=== PATIENT | female | born 1950 | race Caucasian/White ===

== ENCOUNTER → 2017-09-05 | Outpatient (CLI) | payer MEDICARE, BC ==
[~2017-09-05] MED LIST: BACL10TA PO; IMIT100T PO; MONT10TA4 PO; OMEP20CA2 PO; PULM90IN INH; TRAM50TA PO; WALKER WHEELS/F1 MIS
[2017-09-05 10:53] LABS: HEMATOCRIT 41.1 % (35.0-46.0); HEMOGLOBIN 14.4 GM/DL (11.6-15.3); MEAN CELL VOLUME 89.4 FL (80.0-100.0); MEAN CORPUSCULAR HEMOGLOBIN 31.3 PG (27.0-34.0); MEAN PLATELET VOLUME 6.5 FL (7.0-11.0); PLATELET COUNT 372 TH/MM3 (150-450); RED CELL DISTRIBUTION WIDTH 13.2 % (11.6-17.2); WHITE BLOOD COUNT 6.6 TH/MM3 (4.0-11.0)
--- NOTE | 2017-09-05 11:14 | RADRPT ---
EXAM DATE/TIME: 09/05/2017 10:03 [facility] COMPARISON: No previous studies available for comparison. INDICATIONS : Evaluate for pneumonia, pneumothorax, or communicable disease. Pre-op for lumbar fusion on 09/10/2017 . MEDICAL HISTORY : None. SURGICAL HISTORY : None. ENCOUNTER: Initial ACUITY: 1 day PAIN SCORE: 0/10 LOCATION: Bilateral chest FINDINGS: PA and lateral views of the chest demonstrate the lungs to be symmetrically aerated without evidence of mass, infiltrate or effusion. The cardiomediastinal contours are unremarkable. Osseous structure s are intact. CONCLUSION: No acute disease. Haresh Llanos MD on September 05, 2017 at 11:12 Board Certified Radiologist. This report was verified electronically.
[2017-09-05 11:20] LABS: BICARBONATE 25.8 MEQ/L (21.0-32.0); CALCIUM 9.5 MG/DL (8.5-10.1); CREATININE 0.8 MG/DL (0.50-1.00)
--- NOTE | 2017-09-06 18:34 | EKG ---
Date Performed: 09/05/2017 Time Performed: 09:40:14 PTAGE: 67 years EKG: Sinus rhythm . Possible left atrial abnormality Low QRS voltages in precordial leads Borderline ECG NO PREVIOUS TRACING DOCTOR: Chandrakant Romero Interpretating Date/Time 09/06/2017 18:32:50
== END ==
LOC: CPRE 09:08
PROVIDERS: ATTEND Neurological Surgery
DX: Z01.812 Encounter for preprocedural laboratory examination (principal); Z01.810 Encounter for preprocedural cardiovascular examination; Z01.811 Encounter for preprocedural respiratory examination; M43.16 Spondylolisthesis, lumbar region; M48.062 Spinal stenosis, lumbar region with neurogenic claudication; R94.31 Abnormal electrocardiogram [ECG] [EKG]
CPT/HCPCS: 36415; 71046; 80048; 85027; 85610; 85730; 87640; 87641; 93005

== ENCOUNTER 2017-09-10 05:58 | Inpatient (IN) | payer MEDICARE, BC ==
[~2017-09-10] VITALS: Ht 167.6 cm; Wt 87.6 kg
[~2017-09-10 05:58] MED LIST changes: -IMIT100T PO; -PULM90IN INH; -WALKER WHEELS/F1 MIS
[2017-09-10] MEDS ORDERED: POVIDONE IODINE 5% (ANTISEPSIS KIT) 4 APPLICATIONS EACH NARE PRN (06:30)
[2017-09-10] MEDS ORDERED: METOPROLOL TARTRATE 25 MG TAB PO PRN (06:30)
[2017-09-10] MEDS ORDERED: LACTATED RINGER'S 1000 ML INJ 1,000 ML IV SCH (06:30)
[2017-09-10] MEDS ORDERED: CHLORHEXIDINE GLUCONATE 2 % 1 PACK (2 CLOTHS) TOPICAL PRN (06:30)
[2017-09-10] MEDS ORDERED: SODIUM CHLORID 0.9% 500 ML IV PRN (06:30)
[2017-09-10] MEDS ORDERED: LACTATED RINGER'S 1000 ML IV PRN (06:30)
[2017-09-10] MEDS ORDERED: IMIT100T PO (06:37)
[2017-09-10] MEDS ORDERED: PULM90IN INH (06:37)
[2017-09-10] MEDS ORDERED: HYDROmorphone HCL PF 2 MG/ML VIAL ONE (07:02)
[2017-09-10] MEDS ORDERED: ACETAMINOPHEN 1000 MG/100 ML 100 ML IV ONE (07:02)
[2017-09-10] MEDS ORDERED: PROPOFOL 500 MG/50 ML INJ 150 ML ONE (07:03)
[2017-09-10] MEDS ORDERED: THROMBIN (TOPICAL) 5,000 UNIT VIAL ONE (07:37)
[2017-09-10] MEDS ORDERED: HEPARIN SODIUM - SQ 10,000 UNITS/ML VIAL ONE (07:37)
[2017-09-10] MEDS ORDERED: GENTAMICIN SULFATE 80 MG/2 ML VIAL ONE (07:38)
[2017-09-10] MEDS ORDERED: GELFOAM SIZE 100 ONE (07:38)
[2017-09-10] MEDS ORDERED: LIDOCAINE 1%/EPINEPHrine 1:100,000 SOLN 20 ML VIAL ONE ×2 (07:38→07:45)
[2017-09-10] MEDS ORDERED: BUPIVACAINE LIPOSOME PF 1.3% 20 ML VIAL ONE (07:43)
[2017-09-10] MEDS ORDERED: BUPIVACAINE HCL PF 0.25% 30 ML VIAL ONE (07:45)
[2017-09-10] MEDS ORDERED: APREPITANT 40 MG CAP ONE (08:17)
[2017-09-10] MEDS: ceFAZolin 1,000 MG/NS 100 ML IV SCH ×6 (08:19→16:15)
[2017-09-10] MEDS ORDERED: PHENYLEPH/NS 1000 MCG/10 ML SYR IV ONE (12:00)
[2017-09-10] MEDS ORDERED: LACTATED RINGER'S 1000 ML INJ 3,000 ML IV ONE (12:00)
[2017-09-10] MEDS ORDERED: PHENYLEPHRINE HCL 10 MG/ML VIAL IV ONE (12:00)
[2017-09-10] MEDS ORDERED: DEXAMETHASONE SOD PHOS 4 MG/ML VIAL IV ONE (12:00)
[2017-09-10] MEDS ORDERED: ROCURONIUM INJ 50 MG/5 ML SYRINGE IV PUSH ONE (12:00)
[2017-09-10] MEDS ORDERED: SODIUM CHLORID 0.9% 500 ML INJ 500 ML IV ONE (12:00)
[2017-09-10] MEDS ORDERED: ceFAZolin INJ 1,000 MG VIAL IV ONE (12:00)
[2017-09-10] MEDS ORDERED: ONDANSETRON HCL 4 MG/2 ML VIAL IV ONE (12:00)
[2017-09-10] MEDS ORDERED: PROPOFOL 200 MG/20 ML AMP IV ONE (12:00)
[2017-09-10] MEDS ORDERED: LIDOCAINE HCL 1% PF 5 ML SYRINGE OTHER ONE (12:00)
[2017-09-10] MEDS ORDERED: ceFAZolin 2 GM PREMIX 50 ML ONE (12:15)
[2017-09-10] MEDS ORDERED: PROPOFOL 500 MG/50 ML INJ 100 ML ONE (13:03)
[2017-09-10 13:32] LABS: HEMATOCRIT 31.6 % (35.0-46.0)
[2017-09-10] MEDS ORDERED: MIDAZOLAM HCL 2 MG/2 ML VIAL ONE (15:47)
[2017-09-10] MEDS ORDERED: BUPIVACAINE LIPOSOME PF 1.3% 20 ML VIAL INFIL ONE (16:03)
[2017-09-10] MEDS ORDERED: MORPHINE SULFATE 30 MG/30 ML PCA IV SCH (18:15)
[2017-09-10] MEDS ORDERED: NALOXONE HCL 0.4 MG/ML AMP IV PUSH PRN ×2 (18:15)
[2017-09-10] MEDS ORDERED: ACETAMINOPHEN/HYDROcodone 325 MG/5 MG TAB PO PRN (18:15)
--- NOTE | 2017-09-10 18:25 | PD.OP ---
Operative Report Date of Surgery: Sep 10, 2017 Preoperative Diagnosis: (1) Lumbar stenosis with neurogenic claudication (2) Spondylolisthesis of lumbar region Grade I L3-4 and L4-5 spondylolisthesis Lumbar stenosis Neurogenic claudication Postoperative Diagnosis: (1) Lumbar stenosis with neurogenic claudication (2) Spondylolisthesis of lumbar region Grade I L3-4 and L4-5 spondylolisthesis Lumbar stenosis Neurogenic claudication Procedure: 1. L3 4 and L4 5 bilateral decompressive semi-laminectomy, medial facetectomy, foraminotomy-microtechnique 2. L3 4 and L4 5 discectomy, interbody fusion, PEEK cage, lamina autograft bone and demineralized bone matrix 3. Bilateral L3-L5 posterior segmental instrumentation with pedicle screw fixation 4. Bilateral L3-5 posterior lateral fusion with laminar autograft and demineralized bone matrix 5. 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 Left L3 4 foraminal synovial cyst Procedure in detail: The patient was brought to the operating room and general endotracheal anesthesia induced without difficulty Lines were established per Anesthesia Sequential compression devices were in place The patient was positioned prone on the concentric Danny table with the side bolsters and all extremities appropriately padded Leads for intraoperative neuro monitoring were placed prior to positioning and a baseline study obtained Appropriate timeout procedure was performed with all personnel present and in agreement The lumbar region was shaved with clippers and sterilely prepped and draped 1% Xylocaine with epinephrine was used for local infiltration over the incision site which was made at the midline L3 through L5 level. The incision was carried sharply down to the lumbodorsal fascia which was sharply incised Jung elevator was used for subperiosteal elevation of paraspinous musculature and fascia away from the lamina and spinous processes L3, L4, L5 on the left side. The deep self-retaining retractor was placed with tension released at 10 minute intervals and the retractor removed frequently to avoid excessive muscle retraction. The appropriate levels were verified with intraoperative C-arm The microscope was moved into place and used for the decompression and cage placement portion of the procedure . The entry point for the pedicle screws were determined by anatomic and radiographic landmarks. The pedicle screw site was prepared with the awl followed by the pedicle finder and the tap. The ball tip probe was used to probe the pedicle screw site to ensure that there was no breakout through the pedicle. The appropriate size pedicle screw was placed at each pedicle screw site The screw placement was verified with intraoperative C-arm and intraoperative neural monitoring and felt to be satisfactory. The TPS drill with a 5 mm bone bur followed by the Kerrison rongeur was used to remove the inferior two thirds of the lamina at the cephalad level of the decompression and the superior third of the lamina at the caudal level of the decompression. The decompression was accomplished at the L3 4 and L4 5 levels starting on the left side and working across the midline to the right. On the left side the majority of the facet was removed to allow for the cage placement. Hypertrophied ligamentum flavum was elevated away from the thecal sac and exiting nerve roots with the thin ligament dissector and resected with a 15 blade knife and Kerrison rongeur. The thecal sac and exiting nerve root were freed up from surrounding adhesions with the microdissectors and gently retracted medially revealing the underlying disc and annulus. There was moderate subannular disc herniation. 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 This appeared to join the exiting left L4 nerve root. This aberrant nerve was directly stimulated with intraoperative stimulation and response was obtained from the left tibialis anterior at a low threshold. This nerve was carefully preserved during the entirety of the procedure. In order to achieve adequate room for a cage placement at the L4 5 level, the exiting left L4 and aberrant nerve were carefully dissected as much as possible away from surrounding structures and adhesions and careful retraction of the nerve roots away from the thecal sac yielded just adequate room for a cage to be placed. The annulus was incised with the 11 blade knife and discectomy performed with pituitary biopsy forceps and straight and angled curettes at each level. The endplate scrapers were used to decorticate the endplates and any remaining debris was removed with the antibiotic irrigation and suction and pituitary biopsy forceps The appropriate size PEEK cage was packed with retained lamina cancellus autograft and a small amount of demineralized bone matrix, with a lordotic cage placed at the L3 4 level. Due to the limited space available at the L4 5 level, a expandable cage without graft was placed at L4 5 with graft placed into the interspace and firmly packed prior to cage placement. The placement was checked under the microscope and with intraoperative C-arm and felt to be satisfactory. The thecal sac and nerve roots were probed with the long blunt nerve hook and felt to be well decompressed Next using a subcutaneous trans-fascial approach, the [email or web address] needles were advanced into the right L3, L4, and L5 pedicle using AP and lateral C-arm imaging. The guidewires were placed through each needle and the needle cannula removed. The dilators were used to dilate down to the entry point of the pedicle and the cannulated 5.5 mm tap was utilized to prepare the pedicle followed by placement of the proper length cannulated MIS screw on the MIS extension. The MIS screws on the right were again checked with intraoperative neuro monitoring felt to be satisfactory. The rods were placed across the pedicle screws on each side. The L5 screw was locked in place first and the reducers on the right and left side were used to simultaneously reduce the L4 5 and next the L3 4 anterolisthesis. The locking caps were secured with the torque wrench and anti-torque device under bilateral compression to achieve better lordosis. The entire construct was checked with intraoperative C-arm and felt to be satisfactory The region was well irrigated with antibiotic irrigation The posterior lateral structures at the bilateral L3-L5 levels were decorticated with the TPS drill The shavings were left in place, to which was added the remaining autograft and allograft bone which was firmly packed in place for the posterior lateral fusion. The 7 mm flat fluted drain was left in place at the operative side and brought out through a incision at the upper lumbar region and secured to the skin with nylon suture and attached to sterile suction bleeding was carefully controlled with the bipolar forceps The closure was performed with 0 Vicryl interrupted for the deep and superficial fascia, with 3-0 Vicryl for the subcutaneous closure and 4-0 Vicryl running subcuticular closure. Dressings sterile Mastisol, Steri-Strips and Primapore was placed The patient was turned into supine position and taken to recovery room in stable condition All counts were correct at the end of the case Estimated blood loss was 200 cc No specimen was sent to pathology Neuro monitoring was stable during the procedure Darius Lee MD Sep 10, 2017 18:25
[2017-09-10] MEDS ORDERED: DO NOT ADM ANY ANTICOAGULANT DRUGS PRN (18:43)
[2017-09-10] MEDS ORDERED: MORPHINE SULFATE 30 MG/30 ML PCA ONE (18:56)
[2017-09-10] MEDS: D5-1/2 NS + KCL 20 MEQ INJ 1,000 ML IV SCH (19:00)
[2017-09-10 19:04] LABS: AUTOMATED NEUTROPHIL # 13.2 TH/MM3 (1.8-7.7); BASOPHIL % 0.1 % (0.0-2.0); HEMATOCRIT 36.3 % (35.0-46.0); HEMOGLOBIN 12.1 GM/DL (11.6-15.3); LYMPH % 9.2 % (9.0-44.0); LYMPHOCYTE # 1.4 TH/MM3 (1.0-4.8); MEAN CELL VOLUME 89.3 FL (80.0-100.0); MEAN CORPUSCULAR HEMOGLOBIN 29.8 PG (27.0-34.0); MEAN CORPUSCULAR HGB CONC 33.4 % (32.0-36.0); MONOCYTE # 0.6 TH/MM3 (0-0.9); NEUT % 86.7 % (16.0-70.0); PLATELET COUNT 324 TH/MM3 (150-450); RED BLOOD COUNT 4.06 MIL/MM3 (4.00-5.30); RED CELL DISTRIBUTION WIDTH 13.1 % (11.6-17.2); WHITE BLOOD COUNT 15.2 TH/MM3 (4.0-11.0)
[2017-09-10 19:30] LABS: BICARBONATE 24.7 MEQ/L (21.0-32.0); CALCIUM 8.4 MG/DL (8.5-10.1); CREATININE 0.86 MG/DL (0.50-1.00)
--- NOTE | 2017-09-10 20:34 | RADRPT ---
EXAM DATE/TIME: 09/10/2017 15:58 [facility] COMPARISON: No previous studies available for comparison. INDICATIONS : Fusion L3,L4 and L4,L5 with screw and kelvin placement. MEDICAL HISTORY : SURGICAL HISTORY : None. ENCOUNTER: Initial ACUITY: 1 day PAIN SCORE: Non-responsive. LOCATION: Lumbar spine. FINDINGS: Multiple views of the operating room show changes of discectomy and fusion procedure with interbody a nd posterior rotation and L3/L4 and L4/L5. There is grade one anterolisthesis at both levels, presuma lucia nonacute. No fractures or other acute complications are demonstrated. CONCLUSION: No acute complication demonstrated, fusion at L3/L4 and L4/L5. Presley Caraballo MD on September 10, 2017 at 20:30 Board Certified Radiologist. This report was verified electronically.
[2017-09-10] MEDS ORDERED: PCA - TOTAL MG MORPHINE DELIVERED PER SHIFT SCH ×2 (22:00)
[2017-09-11 04:05] VITALS: BP 128/76; PULSE 82; RESP 18; TEMP 97.8; O2SAT 99
[2017-09-11] MEDS: D5-1/2 NS + KCL 20 MEQ INJ 1,000 ML IV SCH (05:09)
[2017-09-11] MEDS: ACETAMINOPHEN/HYDROcodone 325 MG/10 MG TAB PO PRN ×2 (06:29→11:07)
[2017-09-11 08:00] VITALS: BP 121/65; PULSE 80; RESP 16; TEMP 97.3; O2SAT 99
[2017-09-11] MEDS ORDERED: SUMAtriptan SUCCINATE 50 MG TAB PO PRN (08:30)
[2017-09-11] MEDS: MONTELUKAST SODIUM 10 MG TAB PO SCH (09:30)
[2017-09-11] MEDS ORDERED: BUDESONIDE 90 MCG INH SCH (09:30)
[2017-09-11] MEDS: PANTOPRAZOLE SOD 20 MG DELAYED RELEASE TAB PO SCH (09:30)
[2017-09-11] MEDS ORDERED: NALOXONE HCL 0.4 MG/ML AMP IV PUSH PRN (11:00)
[2017-09-11] MEDS ORDERED: RESP: ALBUTEROL 2.5 MG/IPRATROPIUM 0.5 MG NEB (PRN) NEB (11:00)
[2017-09-11 12:00] VITALS: BP 117/71; PULSE 80; RESP 16; TEMP 97.3; O2SAT 100
[2017-09-11] MEDS: MORPHINE SULFATE 30 MG/30 ML PCA IV SCH (12:03)
[2017-09-11 13:55] LABS: AUTOMATED NEUTROPHIL # 5.4 TH/MM3 (1.8-7.7); BASOPHIL # 0.1 TH/MM3 (0-0.2); BASOPHIL % 0.9 % (0.0-2.0); EOSINOPHIL # 0.2 TH/MM3 (0-0.4); EOSINOPHIL % 1.7 % (0.0-4.0); HEMATOCRIT 35.3 % (35.0-46.0); HEMOGLOBIN 12.4 GM/DL (11.6-15.3); LYMPHOCYTE # 2.9 TH/MM3 (1.0-4.8); MEAN CELL VOLUME 89.9 FL (80.0-100.0); MEAN CORPUSCULAR HEMOGLOBIN 31.5 PG (27.0-34.0); MEAN CORPUSCULAR HGB CONC 35.1 % (32.0-36.0); MEAN PLATELET VOLUME 6.3 FL (7.0-11.0); MONO % 9.5 % (0.0-8.0); MONOCYTE # 0.9 TH/MM3 (0-0.9); NEUT % 56.9 % (16.0-70.0); PLATELET COUNT 330 TH/MM3 (150-450); RED BLOOD COUNT 3.93 MIL/MM3 (4.00-5.30); RED CELL DISTRIBUTION WIDTH 13.2 % (11.6-17.2); WHITE BLOOD COUNT 9.4 TH/MM3 (4.0-11.0)
[2017-09-11] MEDS: PCA - TOTAL MG MORPHINE DELIVERED PER SHIFT SCH ×2 (14:00→21:43)
[2017-09-11 14:06] LABS: PROTHROMBIN TIME - PATIENT 10.4 SEC (9.8-11.6)
[2017-09-11 14:17] LABS: BICARBONATE 27.4 MEQ/L (21.0-32.0); CALCIUM 9.1 MG/DL (8.5-10.1); CREATININE 0.77 MG/DL (0.50-1.00)
[2017-09-11 16:00] VITALS: BP 112/72; PULSE 93; RESP 16; TEMP 99.1; O2SAT 100
--- NOTE | 2017-09-11 18:23 | HHI.NSPN ---
History Chief Complaint: low back pain Interval History 67-year-old female status post L4 5, L5-S1 laminectomy, interbody fusion, posterior instrumentation 09/10/2017. 09/11/2017: Moderate low back pain. No lower extremity pain weakness or numbness. No complaint of chest pain or shortness of breath. Exam Results Vital Signs Date Time Temp Pulse Resp B/P (MAP) Pulse Ox O2 Delivery O2 Flow Rate FiO2 09/11/17 12:07 16 09/11/17 08:00 97.3 80 121/65 (83) 99 09/11/17 03:30 Nasal Cannula 2 Intake and Output 09/11/17 09/11/17 09/12/17 08:00 16:00 00:00 Intake Total 1340 ml Output Total 2010 ml 75 ml Balance -670 ml -75 ml Physical Examination Respirations: Clear to auscultation Cardiac: Regular without murmur Abdomen: Soft nontender Extremities: No edema Neurologic: Sensation intact light touch lower extremities. Motor within normal limits lower extremities. Awake and alert oriented conversant and appropriate. Skin: No skin lesion or rash. Dressing dry and intact low back. Lab, Micro, Other Results Laboratory Tests Test 09/10/17 18:55 09/11/17 13:46 White Blood Count 15.2 TH/MM3 9.4 TH/MM3 Red Blood Count 4.06 MIL/MM3 3.93 MIL/MM3 Hemoglobin 12.1 GM/DL 12.4 GM/DL Hematocrit 36.3 % 35.3 % Mean Corpuscular Volume 89.3 FL 89.9 FL Mean Corpuscular Hemoglobin 29.8 PG 31.5 PG Mean Corpuscular Hemoglobin Concent 33.4 % 35.1 % Red Cell Distribution Width 13.1 % 13.2 % Platelet Count 324 TH/MM3 330 TH/MM3 Mean Platelet Volume 6.0 FL 6.3 FL Neutrophils (%) (Auto) 86.7 % 56.9 % Lymphocytes (%) (Auto) 9.2 % 31.0 % Monocytes (%) (Auto) 4.0 % 9.5 % Eosinophils (%) (Auto) 0.0 % 1.7 % Basophils (%) (Auto) 0.1 % 0.9 % Neutrophils # (Auto) 13.2 TH/MM3 5.4 TH/MM3 Lymphocytes # (Auto) 1.4 TH/MM3 2.9 TH/MM3 Monocytes # (Auto) 0.6 TH/MM3 0.9 TH/MM3 Eosinophils # (Auto) 0.0 TH/MM3 0.2 TH/MM3 Basophils # (Auto) 0.0 TH/MM3 0.1 TH/MM3 CBC Comment DIFF FINAL DIFF FINAL Differential Comment Blood Urea Nitrogen 8 MG/DL 5 MG/DL Creatinine 0.86 MG/DL 0.77 MG/DL Random Glucose 127 MG/DL 102 MG/DL Calcium Level 8.4 MG/DL 9.1 MG/DL Sodium Level 140 MEQ/L 142 MEQ/L Potassium Level 4.0 MEQ/L 3.8 MEQ/L Chloride Level 108 MEQ/L 107 MEQ/L Carbon Dioxide Level 24.7 MEQ/L 27.4 MEQ/L Anion Gap 7 MEQ/L 8 MEQ/L Estimat Glomerular Filtration Rate 66 ML/MIN 75 ML/MIN Prothrombin Time 10.4 SEC Prothromb Time International Ratio 1.0 RATIO Activated Partial Thromboplast Time 24.6 SEC Medical Decision Making Impression and Plan Impression: 1. Stable neurologic exam postop 2. Moderate drain out continue to mobilize out of bed as tolerated. Physical therapy today 3. Moderate persistent postoperative pain low back Plan: Discussed with patient She will attempt to mobilize out of bed more frequently today. Discontinue drain 09/12/17 Incentive spirometry Mechanical DVT prophylaxis Darius Lee MD Sep 11, 2017 18:23
[2017-09-11 20:40] VITALS: BP 149/79; PULSE 96; RESP 18; TEMP 98.8; O2SAT 99
[2017-09-12 00:40] VITALS: BP 108/61; PULSE 100; RESP 17; TEMP 99.9; O2SAT 96
[2017-09-12] MEDS: D5-1/2 NS + KCL 20 MEQ INJ 1,000 ML IV SCH (03:19)
[2017-09-12] MEDS: MORPHINE SULFATE 30 MG/30 ML PCA IV SCH (03:29)
[2017-09-12 04:45] VITALS: BP 112/67; PULSE 105; RESP 17; TEMP 100.5; O2SAT 93
[2017-09-12 07:56] VITALS: BP 121/69; PULSE 98; RESP 18; TEMP 99.6; O2SAT 94
[2017-09-12] MEDS: MONTELUKAST SODIUM 10 MG TAB PO SCH (08:41)
[2017-09-12] MEDS: PANTOPRAZOLE SOD 20 MG DELAYED RELEASE TAB PO SCH (08:41)
--- NOTE | 2017-09-12 09:53 | HHI.DCPOC ---
Discharge Care Plan Diagnosis: (1) Spondylolisthesis of lumbar region (2) Lumbar stenosis with neurogenic claudication Your Health Problems Are: Difficulty with ADL Incision/Drains Exercise Tolerance Chronic Pain Goals to Promote Your Health * To prevent worsening of your condition and complications * To maintain your health at the optimal level Directions to Meet Your Goals Take your medications as prescribed Follow your dietary instruction Follow activity as directed Keep your appointments as scheduled Take your immunizations and boosters as scheduled If your symptoms worsen call your PCP, if no PCP go to Urgent Care Center or Emergency Room Smoking is Dangerous to Your Health. Avoid second hand smoke Call the 24-hour hour crisis hotline for domestic abuse at Darius Lee MD Sep 12, 2017 09:53
[2017-09-12] MEDS ORDERED: WALKER WHEELS/F1 MIS (09:55)
--- NOTE | 2017-09-12 11:07 | HHI.NSPN ---
(David Leal) History Chief Complaint: Low back pain (David Leal) Interval History 67-year-old female status post L4 5, L5-S1 laminectomy, interbody fusion, posterior instrumentation 09/10/2017. 09/11/2017: Moderate low back pain. No lower extremity pain weakness or numbness. No complaint of chest pain or shortness of breath. 09/12: Initially the patient was in the bathroom with assistance from her when this practitioner first went to see the patient. A few minutes later she was seen sitting in the chair with the LSO brace in place. She states she was not doing so good because of low back pain. She is spontaneously moving all extremities without any difficulty. Her pain medications were adjusted by Dr Lee this morning. (David Leal) Exam Results 09/10/17 09/10/17 09/11/17 09/11/17 09/12/17 09/12/17 06:00 18:00 06:00 18:00 06:00 18:00 Intake Total 3600 ml 1200 ml 840 ml 360 ml 360 ml Output Total 1100 ml 1660 ml 2375 ml 1200 ml 40 ml Balance 2500 ml -460 ml -1535 ml -840 ml 320 ml Intake Oral 200 ml 840 ml 360 ml 360 ml IV Total 1000 ml Other 3600 ml Output Urine Total 900 ml 1550 ml 2300 ml 1150 ml Drainage Total 110 ml 75 ml 50 ml 40 ml Estimated Blood Loss 200 ml # Voids 1 # Bowel Movements 0 0 0 Vital Signs Date Time Temp Pulse Resp B/P (MAP) Pulse Ox O2 Delivery O2 Flow Rate FiO2 09/12/17 07:56 99.6 98 18 121/69 (86) 94 09/12/17 07:26 Nasal Cannula 2.00 09/12/17 04:45 100.5 105 17 112/67 (82) 93 09/12/17 03:29 18 09/12/17 00:40 99.9 100 17 108/61 (77) 96 09/11/17 21:43 17 09/11/17 20:40 98.8 96 18 149/79 (102) 99 09/11/17 16:00 99.1 93 16 112/72 (85) 100 09/11/17 12:07 16 09/11/17 12:03 16 09/11/17 12:00 97.3 80 16 117/71 (86) 100 09/11/17 08:00 97.3 80 16 121/65 (83) 99 09/11/17 05:26 18 09/11/17 04:05 97.8 82 18 128/76 (93) 99 09/11/17 03:30 97.5 80 20 100 Nasal Cannula 2 09/11/17 03:00 70 14 105/65 (78) 97 Nasal Cannula 2 09/11/17 02:00 73 16 112/65 (81) 96 Nasal Cannula 2 09/11/17 01:00 75 14 122/72 (89) 97 Nasal Cannula 2 09/11/17 00:00 95 16 117/64 (81) 95 Nasal Cannula 2 09/10/17 23:33 98.2 81 17 121/76 (91) 99 Nasal Cannula 2 09/10/17 22:00 77 17 128/80 (96) 98 Nasal Cannula 2 09/10/17 21:00 80 14 134/77 (96) 98 Nasal Cannula 2 09/10/17 20:00 81 14 136/74 (94) 100 Nasal Cannula 2 09/10/17 19:30 92 14 133/77 (95) 100 Nasal Cannula 2 09/10/17 19:15 94 14 138/79 (98) 100 Nasal Cannula 2 09/10/17 19:00 109 14 125/64 (84) 98 Nasal Cannula 2 09/10/17 19:00 14 09/10/17 18:42 98.2 100 14 136/86 (103) 99 Nasal Cannula 2 (David Leal) Physical Examination GENERAL: Awake & alert, readily interacts, affect normal, no apparent distress. SKIN: Warm, dry & intact except for the lumbar surgical incision & DEMAR drain w/ intact dressing. She does have bilateral pedal edema. MUSCULOSKELETAL: LUCAS w/o difficulty, NTTP, no evident deformity or clubbing. LSO brace in place, dressing intact to lumbar surgical incision which is mildly TTP and to DEMAR drain insertion site, drain to bulb suction w/serosanguinous drainage. NEUROLOGICAL: AAOx3. Speech clear & appropriate. Follows commands spontaneously. Sensation intact to light touch to the lower extremities. Motor strength is 5/5 to all major flexion & extension muscle groups of the lower extremities. (David Leal) Lab, Micro, Other Results Recent Impressions Lumbar Spine X-Ray 09/10/17 0000 Signed Impressions: Service Date/Time: Sunday, September 10, 2017 15:58 - CONCLUSION: No acute complication demonstrated, fusion at L3/L4 and L4/L5. Presley Caraballo MD Laboratory Tests Test 09/10/17 13:14 09/10/17 18:55 09/11/17 13:46 Hemoglobin 11.0 GM/DL 12.1 GM/DL 12.4 GM/DL Hematocrit 31.6 % 36.3 % 35.3 % White Blood Count 15.2 TH/MM3 9.4 TH/MM3 Red Blood Count 4.06 MIL/MM3 3.93 MIL/MM3 Mean Corpuscular Volume 89.3 FL 89.9 FL Mean Corpuscular Hemoglobin 29.8 PG 31.5 PG Mean Corpuscular Hemoglobin Concent 33.4 % 35.1 % Red Cell Distribution Width 13.1 % 13.2 % Platelet Count 324 TH/MM3 330 TH/MM3 Mean Platelet Volume 6.0 FL 6.3 FL Neutrophils (%) (Auto) 86.7 % 56.9 % Lymphocytes (%) (Auto) 9.2 % 31.0 % Monocytes (%) (Auto) 4.0 % 9.5 % Eosinophils (%) (Auto) 0.0 % 1.7 % Basophils (%) (Auto) 0.1 % 0.9 % Neutrophils # (Auto) 13.2 TH/MM3 5.4 TH/MM3 Lymphocytes # (Auto) 1.4 TH/MM3 2.9 TH/MM3 Monocytes # (Auto) 0.6 TH/MM3 0.9 TH/MM3 Eosinophils # (Auto) 0.0 TH/MM3 0.2 TH/MM3 Basophils # (Auto) 0.0 TH/MM3 0.1 TH/MM3 CBC Comment DIFF FINAL DIFF FINAL Differential Comment Blood Urea Nitrogen 8 MG/DL 5 MG/DL Creatinine 0.86 MG/DL 0.77 MG/DL Random Glucose 127 MG/DL 102 MG/DL Calcium Level 8.4 MG/DL 9.1 MG/DL Sodium Level 140 MEQ/L 142 MEQ/L Potassium Level 4.0 MEQ/L 3.8 MEQ/L Chloride Level 108 MEQ/L 107 MEQ/L Carbon Dioxide Level 24.7 MEQ/L 27.4 MEQ/L Anion Gap 7 MEQ/L 8 MEQ/L Estimat Glomerular Filtration Rate 66 ML/MIN 75 ML/MIN Prothrombin Time 10.4 SEC Prothromb Time International Ratio 1.0 RATIO Activated Partial Thromboplast Time 24.6 SEC (David Leal) Medical Decision Making Impression and Plan Impression: Grade I L3-4 and L4-5 spondylolisthesis Lumbar stenosis Neurogenic claudication The patient is doing well in general but her pain is still not well controlled, no symptoms to the lower extremities. DEMAR drain output for the past 24 hrs is 125 mL as of this morning, another 40 mL has been recorded prior to being seen. Physical Therapy recommends home w/Home Health for further therapy. POD #2 () s/p: 1. L3 4 and L4 5 bilateral decompressive semi-laminectomy, medial facetectomy, foraminotomy-microtechnique 2. L3 4 and L4 5 discectomy, interbody fusion, PEEK cage, lamina autograft bone and demineralized bone matrix 3. Bilateral L3-L5 posterior segmental instrumentation with pedicle screw fixation 4. Bilateral L3-5 posterior lateral fusion with laminar autograft and demineralized bone matrix 5. Intraoperative reduction grade 1 L3 4 and L4 5 spondylolisthesis Postoperative Diagnosis: (1) Lumbar stenosis with neurogenic claudication (2) Spondylolisthesis of lumbar region Grade I L3-4 and L4-5 spondylolisthesis Lumbar stenosis Neurogenic claudication Plan: Discussed plan of care with patient & . Mobilise patient w/assistance. LSO when OOB. PT eval & tx. Discontinue DEMAR drain. Incentive spirometry. Mechanical DVT prophylaxis. (David Leal) Attending Statement The exam, history, and the medical decision-making described in the above note were completed with the assistance of the mid-level provider. I reviewed and agree with the findings presented. I attest that I had a [id number] encounter with the patient on the same day, and personally performed and documented my assessment and findings in the medical record. Persistent significant low back pain Medications adjusted Discontinue drain Continue therapy SCDs Anticipate discharge home tomorrow (Darius Lee MD) David Leal Sep 12, 2017 11:07 Darius Lee MD Sep 16, 2017 13:49
[2017-09-12 11:30] VITALS: BP 106/57; PULSE 95; RESP 18; TEMP 99.5; O2SAT 95
[2017-09-12] MEDS: KETOROLAC TROMETHAMINE 30 MG/ML (IVP) VIAL IV PUSH SCH ×3 (11:34→22:46)
[2017-09-12] MEDS: ACETAMINOPHEN/HYDROcodone 325 MG/10 MG TAB PO PRN ×2 (11:35→19:47)
[2017-09-12] MEDS: METHOCARBAMOL 500 MG TAB PO SCH ×2 (14:23→22:00)
[2017-09-12 15:59] VITALS: BP 106/66; PULSE 84; RESP 18; TEMP 98; O2SAT 99
[2017-09-12 20:40] VITALS: BP 104/72; PULSE 90; RESP 17; TEMP 97.7; O2SAT 100
[2017-09-12] MEDS: MORPHINE SULFATE 30 MG CONTROLLED RELEASE TAB PO SCH (22:45)
[2017-09-13 00:30] VITALS: BP 97/55; PULSE 83; RESP 17; TEMP 98; O2SAT 97
[2017-09-13 04:35] VITALS: BP 109/63; PULSE 81; RESP 17; TEMP 97.9; O2SAT 100
[2017-09-13] MEDS: METHOCARBAMOL 500 MG TAB PO SCH (06:00)
[2017-09-13] MEDS: ACETAMINOPHEN/HYDROcodone 325 MG/10 MG TAB PO PRN ×2 (06:06→11:05)
[2017-09-13] MEDS: KETOROLAC TROMETHAMINE 30 MG/ML (IVP) VIAL IV PUSH SCH (06:07)
[2017-09-13 07:44] VITALS: BP 112/70; PULSE 93; RESP 18; TEMP 98.4; O2SAT 96
[2017-09-13] MEDS ORDERED: TRAM50TA PO (08:41)
[2017-09-13] MEDS ORDERED: MS C15TA7 PO (08:41)
[2017-09-13] MEDS: PANTOPRAZOLE SOD 20 MG DELAYED RELEASE TAB PO SCH (09:08)
[2017-09-13] MEDS: MONTELUKAST SODIUM 10 MG TAB PO SCH (09:08)
[2017-09-13] MEDS: MORPHINE SULFATE 30 MG CONTROLLED RELEASE TAB PO SCH (09:09)
--- NOTE | 2017-09-13 09:37 | HHI.FF ---
Face to Face Verification Diagnosis: (1) Lumbar stenosis with neurogenic claudication (2) Spondylolisthesis of lumbar region Physical Therapy Order: Evaluate and Treat, Improve ambulation, Strength and gait training Instructions: LSO brace when out of bed I have seen patient Adela Lopez on 09/13/17. My clinical findings support the need for the requested home health care services because: Ltd mobility - disease progression Limited ability to care for self I certify that my clinical findings support that this patient is homebound because: Unsteady gait/balance Unsafe to leave home unassisted Darius Lee MD Sep 13, 2017 09:37
--- NOTE | 2017-09-13 09:39 | HHI.DS ---
Discharge Summary Admission Date Sep 10, 2017 at 05:58 Discharge Date: Sep 13, 2017 Admitting Diagnosis Lumbar radiculopathy Lumbar stenosis Lumbar spondylolisthesis (1) Spondylolisthesis of lumbar region Diagnosis: Secondary ICD Code: M43.16 - Spondylolisthesis, lumbar region (2) Lumbar stenosis with neurogenic claudication Diagnosis: Principal ICD Code: M48.062 - Spinal stenosis, lumbar region with neurogenic claudication Procedures L3 4, L4 5 laminectomy interbody fusion with posterior instrumentation CBC/BMP: 09/11/17 1346 09/11/17 1346 Significant Findings Laboratory Tests Test 09/10/17 13:14 09/10/17 18:55 09/11/17 13:46 Hemoglobin 11.0 GM/DL (11.6-15.3) Hematocrit 31.6 % (35.0-46.0) White Blood Count 15.2 TH/MM3 (4.0-11.0) Mean Platelet Volume 6.0 FL (7.0-11.0) 6.3 FL (7.0-11.0) Neutrophils (%) (Auto) 86.7 % (16.0-70.0) Neutrophils # (Auto) 13.2 TH/MM3 (1.8-7.7) Random Glucose 127 MG/DL (74-106) Calcium Level 8.4 MG/DL (8.5-10.1) Chloride Level 108 MEQ/L (98-107) Estimat Glomerular Filtration Rate 66 ML/MIN (>89) 75 ML/MIN (>89) Red Blood Count 3.93 MIL/MM3 (4.00-5.30) Monocytes (%) (Auto) 9.5 % (0.0-8.0) Blood Urea Nitrogen 5 MG/DL (7-18) Hospital Course Patient admitted for the above noted procedure performed without complication. Steady improvement postoperatively with physical therapy. Tolerating diet Pain medications adjusted. N[employer] INSPECTOR discontinued 09/12/17. Pain adequately controlled with oral medications at time of discharge. Home physical therapy with walker and LSO brace when out of bed recommended per therapy. Pt Condition on Discharge: Good Discharge Disposition: Disch w/ Home Health Serv Discharge Instructions DIET: Follow Instructions for: As Tolerated, No Restrictions ACTIVITIES You can perform: Weight Bearing As Richy Activities to Avoid: Lifting/Bending, Strenuous Activity Follow up Referrals: Home Health Physical Therapy New Medications: Morphine ER (Ms Contin) 15 Mg Tab 15 MG PO BID for Pain Management, #14 TAB 0 Refills Walker with Front Wheels (Walker with Front Wheels) 1 Mis Mis EA .ROUTE DIRECTED, #1 0 Refills Continued Medications: Baclofen (Baclofen) 10 Mg Tab 10 MG PO BID PRN for MUSCLE SPASM Budesonide Powder Inh (Pulmicort Flexhaler) 90 Mcg/Act Inhp 90 MCG INH DAILY for Asthma Management, #1 INHALER 0 Refills Montelukast (Montelukast) 10 Mg Tab 10 MG PO DAILY Omeprazole (Omeprazole) 20 Mg Cap 20 MG PO DAILY Sumatriptan (Imitrex) 100 Mg Tab 100 MG PO ONCE PRN for MIGRAINE HEADACHE, TAB 0 Refills If a satisfactory response has not been obtained at 2 hours, a second dose may be administered Tramadol (Tramadol) 50 Mg Tab 50 MG PO Q6HR PRN for PAIN SCALE 1 TO 10, #90 TAB 0 Refills (This prescription has been renewed) Darius Lee MD Sep 13, 2017 09:39
== END 2017-09-13 11:27 | disposition home health service (06) | DRG 455 ==
LOC: HSDI 05:58 → N06B 09-11 03:45
PROVIDERS: ADMIT Neurological Surgery; ATTEND Neurological Surgery
PROC: 0SG10J1 Fusion of 2 or more Lumbar Vertebral Joints with Synthetic Substitute, Posterior Approach, Posterior Column, Open Approach (ICD-10-PCS; 2017-09-10)
PROC: 0ST20ZZ Resection of Lumbar Vertebral Disc, Open Approach (ICD-10-PCS; 2017-09-10)
PROC: 0SG10AJ Fusion of 2 or more Lumbar Vertebral Joints with Interbody Fusion Device, Posterior Approach, Anterior Column, Open Approach (ICD-10-PCS; principal; 2017-09-10 08:30)
DX: M48.062 Spinal stenosis, lumbar region with neurogenic claudication (principal); J45.909 Unspecified asthma, uncomplicated; M54.16 Radiculopathy, lumbar region; M71.38 Other bursal cyst, other site; M43.16 Spondylolisthesis, lumbar region; Q07.8 Other specified congenital malformations of nervous system; K21.9 Gastro-esophageal reflux disease without esophagitis; Z85.828 Personal history of other malignant neoplasm of skin; Z96.653 Presence of artificial knee joint, bilateral; K58.9 Irritable bowel syndrome, unspecified
CPT/HCPCS: 72100; 76000; 80048; 85014; 85018; 85025; 85610; 85730; 86850; 86900; 86901; 86920; 94150; C1713; C9290; J0131; J0690; J1100; J1170; J1580; J1644; J1885; J2250; J2270; J2370; J2405; J3010; J3480; J7040; J7120; J8501; L0484